=== PATIENT | male | born 1965 | race Caucasian/White ===

== ENCOUNTER 2023-10-03 01:49 | Emergency (ER) | payer OTHER ==
[~2023-10-03] VITALS: Ht 175.3 cm; Wt 82.0 kg
[2023-10-03 01:54] VITALS: TEMP 98.9; O2SAT 96
[2023-10-03] MEDS: ACETAMINOPHEN 325MG TABLET PO ONE (02:35)
[2023-10-03] MEDS ORDERED: IBUP-2028 MT (03:52)
[2023-10-03 04:09] VITALS: BP 150/92; PULSE 56; RESP 18
== END 2023-10-03 04:11 | disposition home or self-care (01) ==
LOC: ER 02:13
DX: S09.8XXA Other specified injuries of head, initial encounter (principal); M54.2 Cervicalgia; X58.XXXA Exposure to other specified factors, initial encounter; Y93.89 Activity, other specified; Y92.89 Other specified places as the place of occurrence of the external cause; Y99.8 Other external cause status
CPT/HCPCS: 99284